=== PATIENT | male | born 1950 | race Caucasian/White ===

== ENCOUNTER 2019-03-29 11:05 | Day surgery (SDC) | payer MEDICARE, OTHER ==
[~2019-03-29] VITALS: Ht 182.9 cm; Wt 78.2 kg
[2019-03-29] MEDS ORDERED: normal saline 1000ml 1,000 ML IV PRN (11:25)
[2019-03-29 11:30] VITALS: BP 137/80
[2019-03-29] MEDS ORDERED: PRED5TAB PO (11:42)
[2019-03-29] MEDS ORDERED: UBID50CA31 PO (11:42)
[2019-03-29] MEDS ORDERED: ERGO500014 PO (11:42)
[2019-03-29] MEDS ORDERED: turkey tail mushroom PO (11:42)
[2019-03-29] MEDS ORDERED: ENZA40CA PO (11:42)
[2019-03-29 11:54] LABS: BASOPHILS % (AUTO) 0.8 % (0-1); EOSINOPHILS % (AUTO) 0.9 % (0-6); HEMATOCRIT 40.1 % (42.0-52.0); HEMOGLOBIN 13.9 g/dl (14.0-17.9); LYMPHOCYTES # (AUTO) 0.8 X10'3 (1.1-4.8); LYMPHOCYTES % (AUTO) 17.1 % (21-51); MEAN CORPUSCULAR HEMOGLOBIN 31.6 PG (27.0-31.0); MEAN CORPUSCULAR HGB CONC 34.6 g/dL (33.0-36.5); MEAN CORPUSCULAR VOLUME 91.3 FL (78-98); MONOCYTES # (AUTO) 0.3 X10'3 (0-0.9); MONOCYTES % (AUTO) 7.1 % (2-12); NEUTROPHILS # (AUTO) 3.6 X10'3 (1.8-7.7); NEUTROPHILS % (AUTO) 74.1 % (42-75); PLATELET COUNT 149 X10'3 (140-440); RED BLOOD COUNT 4.39 X10'6 (4.70-6.10); RED CELL DISTRIBUTION WIDTH 14.3 % (11.5-14.5); WHITE BLOOD COUNT 4.9 X10'3 (4.5-11.0)
[2019-03-29 12:04] LABS: ALBUMIN 3.5 G/DL (3.4-5.0); ANION GAP 7 (8-16); BLOOD UREA NITROGEN 11 MG/DL (7-18); BUN/CREATININE RATIO 12.9 (5.4-32.0); CALCIUM 7.8 MG/DL (8.5-10.1); CHLORIDE 107 MMOL/L (99-107); CREATININE 0.85 MG/DL (0.60-1.10); GLUCOSE 90 MG/DL (70-104); POTASSIUM 3.7 MMOL/L (3.5-5.1); SODIUM 139 MMOL/L (135-145); TOTAL CARBON DIOXIDE 24.8 MMOL/L (24-32); eGFR 90 ML/MIN
[2019-03-29] MEDS ORDERED: LEUP45SY IJ (12:08)
[2019-03-29] MEDS ORDERED: DENO120V IJ (12:08)
[2019-03-29] MEDS ORDERED: fentaNYL/PF 50MCG/1 ML 2ML syringe IV PRN (14:55)
[2019-03-29] MEDS ORDERED: midazolam 2 mg/2 ml injection IV PRN (14:55)
[2019-03-29] MEDS ORDERED: heparin sodium, porcine/PF 100unit/ml 5ML syringe ICATH ONE (14:55)
[2019-03-29] MEDS ORDERED: LIDOcaine 1%/PF 5ML 10 MG/ML VIAL SQ ONE (14:55)
[2019-03-29] MEDS ORDERED: heparin sodium, porcine/PF 100unit/ml 5ML syringe ONE (14:59)
[2019-03-29] MEDS ORDERED: fentaNYL/PF 50MCG/1 ML 2ML syringe ONE (15:00)
[2019-03-29] MEDS ORDERED: midazolam 2 mg/2 ml injection ONE (15:00)
[2019-03-29] MEDS ORDERED: LIDOcaine 1%/PF 5ML 10 MG/ML VIAL ONE (15:00)
[2019-03-29] MEDS ORDERED: LIDOcaine 1% w/EPI 1:100,000 30ml vial (MDV) ONE (15:17)
[2019-03-29] MEDS ORDERED: gelatin sponge, absorbable (Gelfoam 12-7MM) sponge TP ONE (15:17)
[2019-03-29 16:04] VITALS: BP 127/82
[2019-03-29 16:05] VITALS: BP 127/82
[2019-03-29 16:20] VITALS: BP 99/39
[2019-03-29 16:35] VITALS: BP 121/65
[2019-03-29 17:05] VITALS: BP 112/67
== END 2019-03-29 17:35 | disposition home or self-care (01) ==
LOC: SSTAY O 11:05
PROVIDERS: ATTEND Radiology Vascular & Interventional Radiology
DX: C61 Malignant neoplasm of prostate (principal)
CPT/HCPCS: 36415; 36561; 76937; 77001; 80048; 85025; 99152; 99153; C1788; C1894; J1642; J2001; J2250; J3010; J3490; J7030; A6219

== ENCOUNTER 2019-10-10 15:57 | Emergency (ER) | payer MEDICARE, OTHER ==
[~2019-10-10] VITALS: Ht 182.9 cm; Wt 77.7 kg
[~2019-10-10 15:57] MED LIST: DENO120V IJ; ENZA40CA PO; ERGO500014 PO; LEUP45SY IM; PRED5TAB PO; UBID50CA31 PO; turkey tail mushroom PO
[2019-10-10 16:00] VITALS: BP 131/80
--- NOTE | 2019-10-10 17:08 | NUR ---
IR RN CAME TO ASSESS THE PATIENT. THEY ARE CONTACTING THE MD TO SEE IF HE WANT TO REMOVE THE PORT TONIGHT OR KEEP IT SCHEDULED FOR REMOVAL FOR TOMORROW MORNING
--- NOTE | 2019-10-10 17:24 | NUR ---
Spoke with Dr. Olguin, presser cotton ginning IR Doctor, regarding this patient. He states that he would like us to clean and place a dressing over the top in preparation for his appointment tomorrow. IR nurse to perform this and will inform ER nurse.
== END 2019-10-10 18:13 | disposition home or self-care (01) ==
LOC: ER 15:58
DX: Z45.2 Encounter for adjustment and management of vascular access device (principal); Z85.46 Personal history of malignant neoplasm of prostate; Z88.0 Allergy status to penicillin; Z79.899 Other long term (current) drug therapy
CPT/HCPCS: 99283; 99284

== ENCOUNTER 2019-10-11 08:46 | Day surgery (SDC) | payer MEDICARE, OTHER ==
[~2019-10-11] VITALS: Ht 180.3 cm; Wt 75.2 kg
[2019-10-11 09:15] VITALS: BP 135/72
[2019-10-11] MEDS ORDERED: FLU VACC QS2019-20 36MOS UP/PF 60 MCG/0.5 ML SYRINGE IMVAC ONE (10:05)
[2019-10-11] MEDS ORDERED: fentaNYL/PF 50MCG/1 ML 2ML syringe IV PRN (11:10)
[2019-10-11] MEDS ORDERED: midazolam 2 mg/2 ml injection IV PRN (11:10)
[2019-10-11] MEDS ORDERED: heparin sodium, porcine/PF 100unit/ml 5ML syringe ICATH ONE (11:10)
[2019-10-11] MEDS ORDERED: LIDOcaine 1% 30ml preserv. free vial SQ ONE (11:10)
[2019-10-11] MEDS ORDERED: heparin sodium, porcine/PF 100unit/ml 5ML syringe ONE (11:12)
[2019-10-11] MEDS ORDERED: midazolam 2 mg/2 ml injection ONE (11:13)
[2019-10-11] MEDS ORDERED: fentaNYL/PF 50MCG/1 ML 2ML syringe ONE (11:13)
[2019-10-11] MEDS ORDERED: LIDOcaine 1%/PF 5ML 10 MG/ML VIAL ONE (11:13)
[2019-10-11] MEDS ORDERED: mupirocin 2% nasal ointment 1gm UD NS ONE (11:55)
[2019-10-11] MEDS ORDERED: clindamycin 600mg/D5W 50ml 50 ML IV ONE (11:56)
[2019-10-11] MEDS ORDERED: normal saline 1000ml 1,000 ML IV SCH (12:08)
[2019-10-11 12:35] VITALS: BP 126/78
[2019-10-11 12:50] VITALS: BP 122/78
[2019-10-11 13:05] VITALS: BP 123/72
[2019-10-11 13:20] VITALS: BP 135/72
[2019-10-11 13:35] VITALS: BP 122/74
== END 2019-10-11 13:35 | disposition home or self-care (01) ==
LOC: SSTAY O 08:46
PROVIDERS: ATTEND Radiology Vascular & Interventional Radiology
DX: Z45.2 Encounter for adjustment and management of vascular access device (principal); C61 Malignant neoplasm of prostate; Z88.0 Allergy status to penicillin; Z23 Encounter for immunization
CPT/HCPCS: 36590; G0008; J1642; J2250; J3010; J7030; Q2037; 99152; 99153; A6213; J3490